=== PATIENT | female | born 1985 | race African-American/Black ===

== ENCOUNTER 2018-09-23 09:48 | Emergency (ER) | payer OTHER ==
[2018-09-23 09:54] VITALS: TEMP 98.8; BMI 26.2
--- NOTE | 2018-09-23 10:16 | PDOC ---
History of Present Illness - General Chief Complaint: Nausea/Vomiting Stated Complaint: SICK Time Seen by Provider: 09/23/18 09:52 History Source: Patient Exam Limitations: No Limitations - History of Present Illness Initial Comments: 32 yo F w a pmh of asthma, Gastritis, PUD, lactose intolerance presents to the ER with severe abdominal pain, nausea, vomiting, diarrhea. She has been experiencing abdominal pain and diarrhea for the past two months. She reports that she had a fever 3 days prior but no longer has one today. She came into the ER because her abdominal pain acutely worsened to the point where she is extremely tender in the epigastric region. She has vomitted 6 times in the past 24 hours - NBNB - and had 2 episodes of watery diarrhea. She denies having any chest pain, SOB, difficulty breathing, dysuria, frequency , urgency, headache, recent travel, blurry vision, numbness, or tingling, fevers , chills, or recent infections. PCP: None Social Hx: Smokes half a PPD. Denies drinking or other substance usage Allergies: Penicillin, iodine, contrast dye Past History - Past Medical History Allergies/Adverse Reactions: Allergies Allergy/AdvReac Type Severity Reaction Status Date / Time Iodinated Contrast- Oral and Allergy Mild Hives Verified 05/10/18 15:00 IV Dye iodine Allergy Mild Hives Verified 05/10/18 15:00 Penicillins Allergy Mild Verified 05/10/18 15:00 Home Medications: Ambulatory Orders Albuterol Sulfate Inhaler - [Ventolin Hfa Inhaler -] 1 - 2 inh PO QID PRN Calcium Carbonate [Tums] 200 mg PO PRN #30 tab.chew 09/23/18 Famotidine [Pepcid] 20 mg PO DAILY 09/23/18 Mag Hydrox/Al Hydrox/Simeth [Mylanta Suspension -] 30 ml PO Q6H #1 bottle Ranitidine HCl [Zantac] 150 mg PO DAILY #30 tablet 09/23/18 Asthma: Yes COPD: No GI Disorders: Yes (Gastritis) - Suicide/Smoking/Psychosocial Hx Smoking History: Unknown if ever smoked Have you smoked in the past 12 months: Yes Number of Cigarettes Smoked Daily: 20 Hx Alcohol Use: No Drug/Substance Use Hx: No Substance Use Type: Alcohol Review of Systems - Review of Systems Constitutional: Yes: Chills, Loss of Appetite. No: Diaphoresis, Fever, Malaise HEENTM: No: Blurred Vision, Double Vision Respiratory: No: Cough, Orthopnea, Shortness of Breath, Stridor, Wheezing Cardiac (ROS): No: Chest Pain, Edema, Irregular Heart Rate, Lightheadedness, Palpitations, Syncope, Chest Tightness ABD/GI: Yes: Abdominal Distended, Diarrhea, Nausea, Poor Appetite, Poor Fluid Intake, Vomiting, Indigestion, Abdominal cramping. No: Blood Streaked Bowels, Constipated, Difficulty Swallowing, Rectal Bleeding : No: Burning, Dysuria, Discharge, Frequency Musculoskeletal: Yes: Back Pain. No: Joint Pain, Neck Pain Integumentary: No: Bruising, Change in Color Neurological: No: Headache, Numbness, Paresthesia, Seizure, Tingling, Tremors Psychiatric: No: Anxiety, Depression Endocrine: No: Excessive Sweating, Flushing Hematologic/Lymphatic: No: Anemia, Blood Clots, Easy Bleeding *Physical Exam - Vital Signs Last Vital Signs Temp Pulse Resp BP Pulse Ox 98.8 F 73 18 116/82 99 09/23/18 09:52 09/23/18 09:52 09/23/18 09:52 09/23/18 09:52 09/23/18 09:52 - Physical Exam General Appearance: Yes: Nourished, Appropriately Dressed, Moderate Distress HEENT: positive: EOMI, CARLIN, Normal ENT Inspection, Normal Voice Neck: positive: Supple. negative: Rigid Respiratory/Chest: positive: Lungs Clear, Normal Breath Sounds. negative: Respiratory Distress, Crackles Cardiovascular: positive: Regular Rhythm, Regular Rate, S1, S2. negative: Edema , JVD Vascular Pulses: Dorsalis-Pedis (R): 2+, Doralis-Pedis (L): 2+ Gastrointestinal/Abdominal: positive: Tender (worse in epigastric), Soft, Increased Bowel Sounds, Distended, Tenderness (epigastric). negative: Decreased BS, Guarding, Rebound Rectal Exam: positive: deferred Lymphatic: negative: Adenopathy Musculoskeletal: positive: Normal Inspection. 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 NML intact, Fully Oriented, Alert, Normal Mood/ Affect, Normal Response, Motor Strength 5/5 Moderate Sedation - Procedure Monitoring Vital Signs: Procedure Monitoring Vital Signs Temperature 98.8 F 09/23/18 09:52 Pulse Rate 73 09/23/18 09:52 Respiratory Rate 18 09/23/18 09:52 Blood Pressure 116/82 09/23/18 09:52 O2 Sat by Pulse Oximetry (%) 99 09/23/18 09:52 Procedures - Bedside Ultrasound Bedside Ultrasound: Gallbladder (No wall edema, no stones, no pericholecystic fluid, CBD not inflamed.) ED Treatment Course - LABORATORY CBC & Chemistry Diagram: 09/23/18 10:40 09/23/18 10:40 Medical Decision Making - Medical Decision Making 32 yo F w a pmh of asthma, Gastritis, PUD, lactose intolerance presents to the ER with severe abdominal pain, nausea, vomiting, diarrhea. DDx IBNLT: PUD, gastritis, GERD, perforated ulcer, Gastroenteritis, food poisoning, lactose intolerance, celiac disease, Crohn vs UC, IBD, other food allergy, parasitic infection, cholecystitis vs gallstones. Plan: Labs, Urine, CXR, hcg, GI cocktail, POCUS, re-assess. POCUS showed no evidence of gallstone, no wall edema, no pericholecystic fluid, no distended CBD. Labs unremarkable Patient feels better and is walking around the department after GI cocktail. Abdominal X-ray shows signs concerning for a possible SBO vs ileus. I placed a 20 gauge IV in the right AC and nesha type and screen, pt/ptt - Will get patient a CTAP with IV and PO contrast. - CTAP showed no acute pathology. Patient feels significantly better and is eating crackers and drinking fluids without difficulty. Will DC patient with a new PCP, Gi doc and psychiatrist. *DC/Admit/Observation/Transfer Diagnosis at time of Disposition: Vomiting, Diarrhea, Gastritis - Discharge Dispostion Disposition: HOME Condition at time of disposition: Stable Decision to Admit order: No - Referrals Referrals: [facility] [place] [Provider Group] Josef Mulligan MD [Staff Physician] - Agus Sanon NP [Nurse Practitioner] - - Patient Instructions Printed Discharge Instructions: DI for Diarrhea and Traveler's Diarrhea -- Adult, DI for Nausea -- Adult, DI for Vomiting -- Adult Additional Instructions: You came into the ER with abdominal pain, nausea, and vomiting. We looked at your blood and found no problems. We also did some x-rays and found no problems. It is very important for you to get a new stomach doctor and a new primary care doctor. We are attaching numbers to the discharge papers for you to call up doctors and schedule an appointment with them. Primary doctor - [facility] resident clinic Stomach Doctor - Dr. Mulligan. Psychiatrist - Agus Sanon We have sent medications to your [facility] pharmacy for you to go and pickle processor. Please come back to the ER if your abdominal pain worsens, you have high fevers , or any other new or worsening concerns. Thank you for coming to the [facility] ER. We hope you feel better soon! Print Language: [place] ISLAND[place] - Post Discharge Activity
[2018-09-23] MEDS ORDERED: SODIUM CHLORIDE 1,000 ML IV STA (10:18)
[2018-09-23] MEDS ORDERED: ONDANSETRON 4 MG/2 ML VIAL IVPUSH ONE (10:19)
--- NOTE | 2018-09-23 10:19 | PDOC ---
Attending Attestation - HPI HPI: 09/23/18 11:55 The patient is a 32 year old female, with a significant PMH of gastritis, asthma , PUD, and lactose intolerance who presents to the emergency department with abdominal pain that began last night that progressively worsened today. The patient states abdomen pain is located to the epigastric area and endorses associated symptoms of nausea, 6 episodes of non bilious/non bloody vomiting , and 2 episodes of diarrhea within 24 hours. She states she had cheese and eggs last night which might have exacerbated the pain. The patient denies chest pain , shortness of breath, headache and dizziness. Denies fever, and constipation. Denies dysuria, frequency, urgency and hematuria. Allergies: Iodinated contrast- oral IV dye, iodine, penicillins Past surgical history: None reported Social history: None reported PCP: None reported Documentation prepared by Kelley Lucia, acting as nuclear medical tech for Karen Gillis DO. - Physicial Exam PE: 09/23/18 11:56 GENERAL: Awake, alert, and fully oriented, in no acute distress HEAD: No signs of trauma EYES: PERRLA, EOMI, sclera anicteric, conjunctiva clear ENT: Auricles normal inspection, hearing grossly normal, nares patent, oropharynx clear without exudates. Moist mucosa NECK: Normal ROM, supple, no lymphadenopathy, JVD, or masses LUNGS: Breath sounds equal, clear to auscultation bilaterally. No wheezes, and no crackles HEART: Regular rate and rhythm, normal S1 and S2, no murmurs, rubs or gallops ABDOMEN: +Epigastric tenderness on palpation without no guarding or rebound. No masses EXTREMITIES: Normal range of motion, no edema. No clubbing or cyanosis. No cords, erythema, or tenderness NEUROLOGICAL: Cranial nerves II through XII grossly intact. Normal speech, normal gait SKIN: Warm, Dry, normal turgor, no rashes or lesions noted. Documentation prepared by Kelley Lucia, acting as nuclear medical tech for Karen Gillis DO. <Kelley Lucia - Last Filed: 09/23/18 11:55> - Resident Resident Name: Fernando Grubbs - ED Attending Attestation I have performed the following: I have examined & evaluated the patient, The case was reviewed & discussed with the resident, I agree w/resident's findings & plan, Exceptions are as noted - Medical Decision Making 09/23/18 10:18 I, Dr. Karen Gillis, DO, attest that this document has been prepared under my direction and personally reviewed by me in its entirety. I further attest, that it accurately reflects all work, treatment, procedures and medical decision -making performed by me. 09/23/18 10:45 a/p: 32yo female with epigastric pain, n/v/d -pt has had diarrhea x 2 months -pt with epigastric pain and n/v after eating cheese yesterday and then making rice, egg, meat stirfry last night -pt with hx of gastric ulcer dx at [facility]- saw a migratory game bird biologist who dx with gastric ulcer -moved to [place] recently- does not have doctors here -suspect gastritis flare up, also hx of lactose intolerance and ate cheese yesterday -pt is nontoxic in appearance -bedside ultrasound negative for biliary pathology- no stones, no gb wall thickening, no pericholecystic fluid -will send labs, hydrate, gi meds -will give a gi cocktail -post likely dc to home with GI and PMD follow up 09/23/18 12:01 pt feeling better pts iv removed pt wanted to talk with a friend outside 09/23/18 12:26 pt with early SBO vs ileus on xray will obtain ct imaging, will discuss with surgery 09/23/18 12:27 09/23/18 14:48 ct does not show an obstruction or ileus mild ff in the pelvis no acute appy on ct pt asking to eat and drink stable for dc to home will give gi follow up and follow up with the medicine clinic <Karen Gillis - Last Filed: 09/23/18 14:50>
[2018-09-23] MEDS ORDERED: FAMOTIDINE 20 MG/50 ML IVPB 20 MG/50 ML MG IVPB ONE (10:24)
[2018-09-23] MEDS ORDERED: MAG HYDROX/AL HYDROX/SIMETH -MYLANTA- ORAL SUSPENSION PO ONE (10:51)
[2018-09-23 10:52] LABS: BASO % 0.6 % (0-2.0); EOS % 2.1 % (0-4.5); HEMATOCRIT 33.4 % (32.4-45.2); HEMOGLOBIN 11.5 GM/dL (10.7-15.3); LYMPH % 16.5 % (8-40); MCH 30.7 pg (25.7-33.7); MCHC 34.5 g/dl (32.0-36.0); MEAN CELL VOLUME 88.9 fl (80-96); MEAN PLT VOLUME 7.8 fl (7.5-11.1); MONO % 7.6 % (3.8-10.2); NEUT % 73.2 % (42.8-82.8); PLATELET COUNT 227 K/MM3 (134-434); RBC 3.76 M/mm3 (3.60-5.2); RDW 16.4 % (11.6-15.6); WHITE BLOOD COUNT 6.3 K/mm3 (4.0-10.0)
[2018-09-23] MEDS ORDERED: LIDOCAINE VISCOUS 2% ORAL/TOP 20 ML UNIT-DOSE CUP MM ONE (10:52)
[2018-09-23] MEDS ORDERED: LIDOCAINE VISCOUS 2% ORAL/TOP 20 ML UNIT-DOSE CUP ONE (11:21)
[2018-09-23 11:25] LABS: ALBUMIN 3.9 g/dl (3.4-5.0); ALK PHOS 70 U/L (45-117); ANION GAP 8 MMOL/L (8-16); BILIRUBIN,TOTAL 0.1 mg/dL (0.2-1); BLOOD UREA NITROGEN 14 mg/dL (7-18); CALCIUM 8.7 mg/dL (8.5-10.1); CHLORIDE 104 mmol/L (98-107); CO2 26 mmol/L (21-32); CREATININE 0.7 mg/dL (0.55-1.3); GLUCOSE,RANDOM 78 mg/dL (74-106); LIPASE 199 U/L (73-393); SGOT/AST 24 U/L (15-37); SGPT/ALT 28 U/L (13-61); SODIUM 138 mmol/L (136-145); TOT PROT 7.4 g/dl (6.4-8.2)
[2018-09-23] MEDS ORDERED: SODIUM CHLORIDE 0.9% 1000 ML INFUS.BAG IV ONE (12:25)
[2018-09-23 13:15] LABS: INR 0.94 (0.83-1.09); PROTHROMBIN TIME (PATIENT) 11.1 SEC (9.7-13.0)
[2018-09-23 13:17] LABS: ACTIVATED PTT 29.1 SECONDS (25.2-36.5)
[2018-09-23 15:17] VITALS: BP 131/90; PULSE 84
== END 2018-09-23 15:17 | disposition home or self-care (01) ==
LOC: JER 09:48
PROC: 3E0337Z Introduction of Electrolytic and Water Balance Substance into Peripheral Vein, Percutaneous Approach (ICD-10-PCS; principal; 2018-09-23)
PROC: 3E033GC Introduction of Other Therapeutic Substance into Peripheral Vein, Percutaneous Approach (ICD-10-PCS; 2018-09-23)
PROC: 3E033GC Introduction of Other Therapeutic Substance into Peripheral Vein, Percutaneous Approach (ICD-10-PCS; 2018-09-23)
PROC: BF43ZZZ Ultrasonography of Gallbladder and Bile Ducts (ICD-10-PCS; 2018-09-23)
DX: K29.70 Gastritis, unspecified, without bleeding (principal); E73.9 Lactose intolerance, unspecified; J45.909 Unspecified asthma, uncomplicated; Z87.19 Personal history of other diseases of the digestive system
CPT/HCPCS: 36415; 71045-TC-FY; 74018-TC-FY; 74176-TC; 80053; 83690; 84703; 85025; 85610; 85730; 86850; 86900; 86901; 96361; 96365; 96375; 99282-25; J7030

== ENCOUNTER 2018-10-21 05:52 | Emergency (ER) | payer OTHER ==
[2018-10-21 06:11] VITALS: BP 128/74; PULSE 80; TEMP 97.6; BMI 23.9
[2018-10-21] MEDS ORDERED: ALBUTEROL SO4 2.5/IPRATROPIUM 0.5 INH SOL 3 ML VIAL.NEB. NEB ONE ×2 (06:15→06:54)
[2018-10-21] MEDS ORDERED: methylPREDNISolone NA SUCC 125 MG/2 ML VIAL IVPUSH ONE (06:25)
[2018-10-21 07:05] LABS: BASO % 0.8 % (0-2.0); EOS % 2.2 % (0-4.5); HEMATOCRIT 31.6 % (32.4-45.2); LYMPH % 21.3 % (8-40); MCH 31.7 pg (25.7-33.7); MCHC 34.8 g/dl (32.0-36.0); MEAN CELL VOLUME 91.1 fl (80-96); MEAN PLT VOLUME 7.5 fl (7.5-11.1); MONO % 7.5 % (3.8-10.2); NEUT % 68.2 % (42.8-82.8); PLATELET COUNT 242 K/MM3 (134-434); RBC 3.47 M/mm3 (3.60-5.2); RDW 17.8 % (11.6-15.6); WHITE BLOOD COUNT 7.2 K/mm3 (4.0-10.0)
--- NOTE | 2018-10-21 07:15 | PDOC ---
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 She also admits to one fever yesterday that she measured to 103 degrees and back pain, chest pain, proximal arm and leg pains. Denies any sputum production, nausea, vomiting, or diarrhea. 10/21/18 08:45 Past History - Past Medical History Allergies/Adverse Reactions: Allergies Allergy/AdvReac Type Severity Reaction Status Date / Time Iodinated Contrast- Oral and Allergy Mild Hives Verified 10/21/18 06:10 IV Dye iodine Allergy Mild Hives Verified 10/21/18 06:10 Penicillins Allergy Mild Verified 10/21/18 06:10 Home Medications: Ambulatory Orders Albuterol Sulfate Inhaler - [Ventolin Hfa Inhaler -] 1 - 2 inh PO QID PRN Calcium Carbonate [Tums] 200 mg PO PRN #30 tab.chew 09/23/18 Calcium Carbonate [Tums] 200 mg PO PRN #30 tab.chew 09/23/18 Famotidine [Pepcid] 20 mg PO DAILY 09/23/18 Mag Hydrox/Al Hydrox/Simeth [Mylanta Suspension -] 30 ml PO Q6H #1 bottle Mag Hydrox/Al Hydrox/Simeth [Mylanta Suspension -] 30 ml PO Q6H #1 bottle Ranitidine HCl [Zantac] 150 mg PO DAILY #30 tablet 09/23/18 Ranitidine HCl [Zantac] 150 mg PO DAILY #30 tablet 09/23/18 Mag Hydrox/Aluminum Hyd/Simeth [Maalox Maximum Strength Susp] 30 ml PO BID PRN # 1 bottle 10/21/18 Ondansetron [Zofran Odt -] 4 mg SL BID PRN #6 od.tablet 10/21/18 Prednisone [Prednisone 50 MG TABLETS] 50 mg PO DAILY #4 tablet 10/21/18 Asthma: Yes COPD: No GI Disorders: Yes (Gastritis) - Suicide/Smoking/Psychosocial Hx Smoking History: Never smoked Have you smoked in the past 12 months: No Number of Cigarettes Smoked Daily: 20 Information on smoking cessation initiated: No Hx Alcohol Use: No Drug/Substance Use Hx: No Substance Use Type: Alcohol Review of Systems - Review of Systems Constitutional: No: Chills, Diaphoresis, Fever, Loss of Appetite HEENTM: No: Eye Pain, Blurred Vision, Tearing Respiratory: Yes: Cough, Shortness of Breath, Wheezing. No: Productive cough Cardiac (ROS): Yes: Chest Pain, Chest Tightness. No: Edema, Irregular Heart Rate, Lightheadedness, Syncope ABD/GI: No: Diarrhea, Nausea, Vomiting : No: Dysuria, Discharge, Frequency Musculoskeletal: Yes: Back Pain, Muscle Pain Integumentary: No: Bruising, Change in Color, Lesions, Lumps, Pallor Neurological: No: Headache, Numbness Psychiatric: Yes: Anxiety, Other (ptsd). No: Depression Hematologic/Lymphatic: No: Anemia, Blood Clots, Easy Bleeding *Physical Exam - Vital Signs Last Vital Signs Temp Pulse Resp BP Pulse Ox 97.6 F 80 22 H 128/74 96 10/21/18 06:10 10/21/18 06:10 10/21/18 06:10 10/21/18 06:10 10/21/18 06:10 - Physical Exam General Appearance: Yes: Nourished, Appropriately Dressed. No: Apparent Distress HEENT: positive: EOMI, CARLIN, Normal ENT Inspection, Normal Voice Neck: positive: Trachea midline, Normal Thyroid, Supple. negative: Tender, Rigid Respiratory/Chest: positive: Lungs Clear, Normal Breath Sounds (Of note, I examined her after she recieved a dose of nebulizer treatment). negative: Chest Tender, Respiratory Distress Cardiovascular: positive: Regular Rhythm, Regular Rate Gastrointestinal/Abdominal: positive: Normal Bowel Sounds, Soft. negative: Tender, Flat Lymphatic: negative: Adenopathy, Tenderness Musculoskeletal: positive: Normal Inspection Extremity: positive: Normal Capillary Refill, Normal Inspection, Normal Range of Motion. negative: Tender Integumentary: positive: Normal Color, Dry, Warm Neurologic: positive: Fully Oriented, Alert, Normal Mood/Affect, Normal Response , Motor Strength 5/5 Moderate Sedation - Procedure Monitoring Vital Signs: Procedure Monitoring Vital Signs Temperature 97.6 F 10/21/18 06:10 Pulse Rate 80 10/21/18 06:10 Respiratory Rate 22 H 10/21/18 06:10 Blood Pressure 128/74 10/21/18 06:10 O2 Sat by Pulse Oximetry (%) 96 10/21/18 06:10 ED Treatment Course - LABORATORY CBC & Chemistry Diagram: 10/21/18 06:44 10/21/18 06:44 Medical Decision Making - Medical Decision Making 33 year old female with URI symptoms and mild muscular pains diffusely. This is likely a viral infection. Patient was given nebulizer treatment prior ot my examination but she was moving air well without adventitious pulmonary findings. CXR was clear, labs WNL, tropnin negative, EKG showing rate 81, NH 162 , QRS 84, QTc 443, normal axis, no ST or T wave changes. Patient improved after nebulizers and PO steroids. She was complaining of a GERD flareup toward the end of her workup so she was given Maalox and famotidine PO. Discharged with prescriptions and PCP follow up. 10/21/18 10:46 *DC/Admit/Observation/Transfer Diagnosis at time of Disposition: SOB (shortness of breath) Asthma Qualifiers: Asthma severity: mild Asthma persistence: intermittent Asthma complication type : with acute exacerbation Qualified Code(s): J45.21 - Mild intermittent asthma with (acute) exacerbation - Discharge Dispostion Disposition: HOME Condition at time of disposition: Improved Decision to Admit order: No - Prescriptions Prescriptions: Mag Hydrox/Aluminum Hyd/Simeth [Maalox Maximum Strength Susp] 30 ml PO BID PRN # 1 bottle PRN Reason: Gas Ondansetron [Zofran Odt -] 4 mg SL BID PRN #6 od.tablet PRN Reason: Nausea Prednisone [Prednisone 50 MG TABLETS] 50 mg PO DAILY #4 tablet - Referrals Referrals: Juan Pablo Louie [Non Staff, Medical] - - Patient Instructions Printed Discharge Instructions: Asthma -- Adult, DI for Epigastric Pain Additional Instructions: As discussed, follow up with Dr. Louie within [address] Louie can refer you to a coverage analyst for your asthma. Try to cut down on smoking as much as possible. Take zofran twice a day as needed for nausea. Return to the nearest emergency department if you have any new, worsening, or concerning symptoms. - Post Discharge Activity
[2018-10-21] MEDS ORDERED: predniSONE 20 MG TABLET (UD) PO ONE (07:29)
[2018-10-21 07:35] LABS: ALBUMIN 3.7 g/dl (3.4-5.0); ALK PHOS 71 U/L (45-117); ANION GAP 7 MMOL/L (8-16); BILIRUBIN,TOTAL 0.3 mg/dL (0.2-1); BLOOD UREA NITROGEN 15 mg/dL (7-18); CALCIUM 8.2 mg/dL (8.5-10.1); CHLORIDE 107 mmol/L (98-107); CO2 25 mmol/L (21-32); CREATININE 0.7 mg/dL (0.55-1.3); GLUCOSE,RANDOM 82 mg/dL (74-106); POTASSIUM 4.3 mmol/L (3.5-5.1); SGOT/AST 27 U/L (15-37); SGPT/ALT 22 U/L (13-61); SODIUM 138 mmol/L (136-145); TOT PROT 6.9 g/dl (6.4-8.2)
--- NOTE | 2018-10-21 07:42 | PDOC ---
Attending Attestation - Resident Resident Name: Leah Rodriguez - ED Attending Attestation I have performed the following: I have examined & evaluated the patient, The case was reviewed & discussed with the resident, I agree w/resident's findings & plan, Exceptions are as noted - HPI HPI: 10/21/18 07:34 33yo F hx asthma (previously intubated, last 6yrs ago, multiple admissions last 1 month ago at [facility], on advair, albuterol PRN), PTSD/anxiety, GERD presents to the ED with 1 days of cough, SOB, diffuse body aches, non productive cough and chest pain when she coughs. +Fever at home to 103 yesterday. Tried albuterol and motrin with mild relief. Also reports her gerd has been "acting up" and she has epigastric pain for 2 days. +sick contacts with URI sxs. - Physicial Exam PE: 10/21/18 08:32 GENERAL: Awake, alert, and fully oriented, in no acute distress HEAD: No signs of trauma EYES: PERRLA, EOMI, sclera anicteric, conjunctiva clear ENT: +nasal congestion, oropharynx with mild posterior OP erythema but without exudates/petechiae. Uvula midline. Moist mucosa NECK: Normal ROM, supple, no lymphadenopathy, JVD, or masses LUNGS: Breath sounds equal, clear to auscultation bilaterally. No wheezes, and no crackles HEART: Regular rate and rhythm, normal S1 and S2, no murmurs, rubs or gallops ABDOMEN: Soft, nontender, normoactive bowel sounds. No guarding, no rebound. No masses EXTREMITIES: Normal range of motion, no edema. No cords, erythema, or tenderness NEUROLOGICAL: Normal speech, cranial nerves intact, equal strength and sensation b/l. Normal gait. SKIN: Superficial abrasion noted to R distal anterior cummins. Otherwise, warm, Dry , normal turgor, no rashes or lesions noted. - Medical Decision Making 10/21/18 08:35 33yo F with hx asthma, GERD, chronic back pain, PTSD/Anxiety presents to the ED with fever, chills, SOB, CP, epigastric abd pain, total body aches. Vitals unremarkable. Exam with mild OP erythema and nasal congestion but lungs are clear, pt appears comfortable and non toxic appearing. Likely viral syndrome. Work up including labs, CXR, flu swab unremarkable. Pt arranging follow up with Dr Berman as outpt for PMD f/u. Pt currently in ambulance bay smoking a cigarette Once back, will reassess, likely DC 10/21/18 09:00 Pt back, well appearing, clear lungs. Repeat RR 16. REquests DC home I discussed the physical exam findings, ancillary test results and final diagnoses with the patient. I answered all of the patient's questions. The patient was satisfied with the care received and felt comfortable with the discharge plan and treatment plan. The patient will call their primary care physician within 24 hours to arrange follow-up and will return to the Emergency Department with any new, persistent or worsening symptoms. Heart Score/ECG Review #1 10/21/18 08:33 Twelve-lead EKG was performed and reviewed by me. Normal sinus rhythm, rate 81. Normal axis and intervals. No ST elevations. T wave inversions in lead V2 to V3 with biphasic T-wave in V4. Also T-wave inversion in lead 3. When compared to EKG from 05/10/2018, no significant changes.
[2018-10-21] MEDS ORDERED: RANITIDINE HCL 150 MG/10 ML UNIT-DOSE PO ONE (07:47)
[2018-10-21] MEDS ORDERED: MAG HYDROX/AL HYDROX/SIMETH 30 ML UNIT-DOSE CUP PO ONE (07:47)
[2018-10-21] MEDS ORDERED: RANITIDINE HCL 150 MG TABLET (FP) ONE (08:10)
[2018-10-21] MEDS ORDERED: predniSONE 20 MG TABLET (UD) ONE (08:10)
[2018-10-21] MEDS ORDERED: MAG HYDROX/AL HYDROX/SIMETH 30 ML UNIT-DOSE CUP ONE (08:11)
[2018-10-21] MEDS ORDERED: predniSONE 10 MG TABLET (UD) ONE (08:19)
[2018-10-21] MEDS ORDERED: RANITIDINE HCL 150 MG TABLET (FP) PO ONE (08:29)
[2018-10-21 10:03] LABS: PLATELET ESTIMATE ADEQUATE
--- NOTE | 2018-10-21 11:01 | EKG ---
Test Reason : Blood Pressure : / mmHG Vent. Rate : 081 BPM Atrial Rate : 081 BPM P-R Int : 162 ms QRS Dur : 084 ms QT Int : 382 ms P-R-T Axes : 043 028 018 degrees QTc Int : 443 ms NORMAL SINUS RHYTHM NONSPECIFIC T WAVE ABNORMALITY ABNORMAL ECG WHEN COMPARED WITH ECG OF 10-MAY-2018 15:23, NO SIGNIFICANT CHANGE WAS FOUND Confirmed by SANDRA ZHOU MD ([id number]) on 10/21/2018 11:00:54 AM Referred By: Confirmed By:SANDRA ZHOU MD
== END 2018-10-21 09:05 | disposition home or self-care (01) ==
LOC: JER 05:52
DX: J45.901 Unspecified asthma with (acute) exacerbation (principal); K21.9 Gastro-esophageal reflux disease without esophagitis; F43.10 Post-traumatic stress disorder, unspecified; M54.89 Other dorsalgia; G89.29 Other chronic pain; Z88.0 Allergy status to penicillin; Z91.041 Radiographic dye allergy status
CPT/HCPCS: 36415; 71045-TC-FY; 80053; 84484; 84703; 85025; 87804; 93005; 93010; 99282-25

== ENCOUNTER 2019-05-23 11:25 | Emergency (ER) | payer OTHER ==
[2019-05-23 11:39] VITALS: BP 132/93; PULSE 96; TEMP 98.2; BMI 25.7
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
[2019-05-23] MEDS ORDERED: ONDANSETRON *ODT* 4 MG TABLET SL ONE (13:36)
[2019-05-23] MEDS ORDERED: ONDANSETRON *ODT* 4 MG TABLET ONE (13:39)
== END 2019-05-23 16:50 | disposition home or self-care (01) ==
LOC: JERFT 11:25
PROC: 0CQ0XZZ Repair Upper Lip, External Approach (ICD-10-PCS; principal; 2019-05-23)
DX: S01.511A Laceration without foreign body of lip, initial encounter (principal); S10.81XA Abrasion of other specified part of neck, initial encounter; S40.812A Abrasion of left upper arm, initial encounter; S40.811A Abrasion of right upper arm, initial encounter; S50.812A Abrasion of left forearm, initial encounter; S50.811A Abrasion of right forearm, initial encounter; Y04.2XXA Assault by strike against or bumped into by another person, initial encounter; Y93.89 Activity, other specified; Y92.038 Other place in apartment as the place of occurrence of the external cause; Y99.8 Other external cause status; Y07.9 Unspecified perpetrator of maltreatment and neglect
CPT/HCPCS: 70360-TC-FY; 70486-TC; 72050-TC-FY; 84703; 99281-25; Q0162

== ENCOUNTER 2019-06-05 21:13 | Emergency (ER) | payer OTHER ==
[2019-06-05 21:35] VITALS: TEMP 98.4; BMI 24.7
--- NOTE | 2019-06-05 22:06 | PDOC ---
History of Present Illness - General Chief Complaint: Pain, Acute Stated Complaint: ABDOMINAL PAIN Time Seen by Provider: 06/05/19 21:47 History Source: Patient Exam Limitations: No Limitations - History of Present Illness Initial Comments: 06/05/19 22:04 Blanca Mary is a 33yF w PMHx GERD, asthma, chronic back pain presenting w abdominal pain. This afternoon, was sleeping and woke up w sudden onset epigastric and suprapubic pain. Also vomited several times. Endorsed alcohol and marijuana use earlier today. Reports taking percocet for back pain. Denies vaginal discharge/bleeding. Denies fever, headache, SOB, chest pain, urinary, bowel mvmt changes. Sexually active. Asking for benadryl for pain Past History - Past Medical History Allergies/Adverse Reactions: Allergies Allergy/AdvReac Type Severity Reaction Status Date / Time Iodinated Contrast Media Allergy Mild Hives Verified 06/05/19 21:33 [Iodinated Contrast- Oral and IV Dye] iodine Allergy Mild Hives Verified 06/05/19 21:33 Penicillins Allergy Mild Verified 06/05/19 21:33 Home Medications: Ambulatory Orders Albuterol Sulfate Inhaler - [Ventolin Hfa Inhaler -] 1 - 2 inh PO QID PRN Calcium Carbonate [Tums] 200 mg PO PRN #30 tab.chew 09/23/18 Famotidine [Pepcid] 20 mg PO DAILY 09/23/18 Mag Hydrox/Al Hydrox/Simeth [Mylanta Suspension -] 30 ml PO Q6H #1 bottle Ranitidine HCl [Zantac] 150 mg PO DAILY #30 tablet 09/23/18 Mag Hydrox/Aluminum Hyd/Simeth [Maalox Maximum Strength Susp] 30 ml PO BID PRN # 1 bottle 10/21/18 Ondansetron [Zofran Odt -] 4 mg SL BID PRN #6 od.tablet 10/21/18 Prednisone [Prednisone 50 MG TABLETS] 50 mg PO DAILY #4 tablet 10/21/18 Cyclobenzaprine HCl [Flexeril -] 10 mg PO HS #10 tablet 05/23/19 Ibuprofen 800 mg PO TID #30 tablet 05/23/19 Ondansetron [Zofran Odt -] 4 mg SL TID #10 od.tablet 08/29/19 Asthma: Yes COPD: No GI Disorders: Yes (Gastritis) - Immunization History Immunization Up to Date: Yes - Suicide/Smoking/Psychosocial Hx Smoking History: Never smoked Have you smoked in the past 12 months: No Number of Cigarettes Smoked Daily: 10 Hx Alcohol Use: No Drug/Substance Use Hx: Yes (MARIJUANA) Substance Use Type: Alcohol Review of Systems - Review of Systems Constitutional: No: Chills, Fever HEENTM: No: Eye Pain, Ear Pain, Nose Pain, Throat Pain, Mouth Pain Respiratory: No: Cough, Shortness of Breath Cardiac (ROS): No: Chest Pain, Palpitations, Syncope ABD/GI: Yes: Nausea, Vomiting. No: Abdominal Distended, Constipated, Diarrhea : No: Burning, Dysuria, Discharge, Flank Pain, Hematuria Musculoskeletal: No: Back Pain, Joint Pain, Muscle Pain Integumentary: No: Bruising, Flushing, Lesions Neurological: No: Headache, Seizure, Tingling, Tremors Psychiatric: No: Anxiety, Depression Endocrine: No: Excessive Sweating, Flushing, Intolerance to Cold, Intolerance to Heat Hematologic/Lymphatic: No: Anemia, Blood Clots, Easy Bleeding *Physical Exam - Vital Signs Last Vital Signs Temp Pulse Resp BP Pulse Ox 98.4 F 60 18 173/93 H 99 06/05/19 21:33 06/05/19 21:33 06/05/19 21:33 06/05/19 21:33 06/05/19 21:33 - Physical Exam General Appearance: Yes: Nourished, Appropriately Dressed, Moderate Distress ( tearful, moving around) HEENT: positive: EOMI, Hearing Grossly Normal. negative: CARLIN (3mm pupils bilaterally, reactive to light) Respiratory/Chest: positive: Lungs Clear, Normal Breath Sounds. negative: Chest Tender, Respiratory Distress, Crackles, Rales, Rhonchi, Stridor Cardiovascular: positive: Regular Rhythm, Regular Rate, S1, S2. negative: Edema , Murmur Gastrointestinal/Abdominal: positive: Normal Bowel Sounds, Tender (intermittent moderate tenderness all quadrants), Flat, Soft. negative: Organomegaly, Guarding, Rebound, Mass Musculoskeletal: negative: CVA Tenderness Extremity: positive: Normal Capillary Refill Integumentary: positive: Normal Color Neurologic: positive: Fully Oriented, Alert, Normal Mood/Affect, Normal Response , Respond to painful stimul, Responsive. negative: Sensory Deficit, Confused, Disoriented ED Treatment Course - LABORATORY CBC & Chemistry Diagram: 06/05/19 22:30 06/05/19 22:30 Medical Decision Making - Medical Decision Making 06/05/19 22:02 CBC CMP lipase HCG UA drug screen alcohol 1L NS, pepcid, maalox, lidocaine, zofran, toradol, bentyl, tylenol WBC 12, 3+ blood UA CBC, CMP, lipase normal, HCG neg, alcohol neg Blanca Mary is a 33yF w PMHx GERD, asthma presenting w abdominal pain. Pain likely d/t vs gastritis. Given 1L NS, pepcid, maalox, lidocaine, zofran, toradol , bentyl, tylenol w some pain relief. Also is opioid intoxicated w constricted pupils bilaterally. Not , neg alcohol. Does not have pancreatitis w normal lipase. Pt requested to go home. D/c home *DC/Admit/Observation/Transfer Diagnosis at time of Disposition: Abdominal pain Qualifiers: Abdominal location: lower abdomen, unspecified Qualified Code(s): R10.30 - Lower abdominal pain, unspecified - Discharge Dispostion Disposition: HOME Condition at time of disposition: Improved Decision to Admit order: No - Referrals Referrals: Barry Arvizu MD [Non Staff, Medical] - - Patient Instructions Printed Discharge Instructions: DI for Abdominal Pain-Adult Additional Instructions: You were seen for abdominal pain. You were given medication for your pain. Your labs did not show anything concerning Come back to the ED if you have worsening pain or continue vomiting. - Post Discharge Activity
[2019-06-05] MEDS ORDERED: SODIUM CHLORIDE 0.9% 1000 ML INFUS.BAG IV ONE (22:11)
[2019-06-05] MEDS ORDERED: ONDANSETRON 4 MG/2 ML VIAL IVPUSH ONE (22:11)
[2019-06-05] MEDS ORDERED: FAMOTIDINE 20 MG/50 ML IVPB 20 MG/50 ML MG IVPB ONE (22:11)
[2019-06-05] MEDS ORDERED: MAG HYDROX/AL HYDROX/SIMETH 30 ML UNIT-DOSE CUP PO ONE (22:11)
[2019-06-05] MEDS ORDERED: LIDOCAINE VISCOUS 2% ORAL/TOP 20 ML UNIT-DOSE CUP MM ONE (22:12)
[2019-06-05] MEDS ORDERED: ONDANSETRON 4 MG/2 ML VIAL ONE (22:15)
[2019-06-05 22:45] LABS: BASO % 0.7 % (0-2.0); EOS % 0.7 % (0-4.5); HEMATOCRIT 38.6 % (32.4-45.2); HEMOGLOBIN 12.4 GM/dL (10.7-15.3); LYMPH % 6.3 % (8-40); MEAN CELL VOLUME 90.4 fl (80-96); MONO % 4.7 % (3.8-10.2); NEUT % 87.6 % (42.8-82.8); PLATELET COUNT 315 K/MM3 (134-434); RBC 4.27 M/mm3 (3.60-5.2); RDW 16.3 % (11.6-15.6)
[2019-06-05] MEDS ORDERED: KETOROLAC TROMETHAMINE 30 MG/1 ML VIAL IVPUSH ONE (23:02)
--- NOTE | 2019-06-05 23:07 | PDOC ---
Documentation entered by Anitha Gregory SCRIBE, acting as scribe for Karen Gillis DO. Karen Gillis DO: This documentation has been prepared by the chandrikaibe, Anitha Gregory SCRIBE, under my direction and personally reviewed by me in its entirety. I confirm that the documentation accurately reflects all work, treatment, procedures, and medical decision making performed by me. Attending Attestation - Resident Resident Name: Almas Lemus - ED Attending Attestation I have performed the following: I have examined & evaluated the patient, The case was reviewed & discussed with the resident, I agree w/resident's findings & plan, Exceptions are as noted - HPI HPI: 06/05/19 22:38 The patient is a 33-year-old female, with a past medical history of asthma, GERD , and chronic back pain, who presents to the ED with nausea and epigastric/ suprapubic pain that woke her up from sleep today. Patient had one episode of loose stools prior to arrival. The patient denies any fevers or chills. Denies any chest pain, palpitations, or shortness of breath. Denies any urinary symptoms. - Physicial Exam PE: 06/05/19 22:40 GENERAL: Awake, alert, and fully oriented, in no acute distress HEAD: No signs of trauma EYES: PERRLA, EOMI, sclera anicteric, conjunctiva clear ENT: Auricles normal inspection, hearing grossly normal, nares patent, oropharynx clear without exudates. Moist mucosa NECK: Normal ROM, supple, no lymphadenopathy, JVD, or masses LUNGS: Breath sounds equal, clear to auscultation bilaterally. No wheezes, and no crackles HEART: Regular rate and rhythm, normal S1 and S2, no murmurs, rubs or gallops ABDOMEN: (+)Epigastric and suprapubic tenderness to palpation. Soft, normoactive bowel sounds. No guarding, no rebound. No masses EXTREMITIES: Normal range of motion, no edema. No clubbing or cyanosis. No cords, erythema, or tenderness NEUROLOGICAL: Cranial nerves II through XII grossly intact. Normal speech, normal gait SKIN: Warm, Dry, normal turgor, no rashes or lesions noted - Medical Decision Making 06/05/19 23:05 I, Dr. Karen Kurkowski, DO, attest that this document has been prepared under my direction and personally reviewed by me in its entirety. I further attest, that it accurately reflects all work, treatment, procedures and medical decision -making performed by me. 06/05/19 23:05 a/p: 33yo female with hx of gastritis with acute onset of abd pain today -pt states pain to upper abd and lower abd -states she started her menstrual cycle today -pt states cramping in lower abd and n/v since drinking alcohol today -pt denies blood in vomitus or stool -pt states she drank etoh 1.5 beers and smoked marijuana before the pain started -denies back pain or dysuria -pt states pain in upper abd -concern for gastritis vs menstrual cramps causing pain vs pancreatitis -labs ordered, ivf hydation, gi cocktail, zofran -will monitor and reassess 06/06/19 00:09 labs reviewed no elevated lipase no uti blood in urine from menstrual cycle preg neg 06/06/19 01:35 pt ambulatory in the ED requesting to go home tolerated po no vomiting in the ED stable for dc to home
[2019-06-05] MEDS ORDERED: LIDOCAINE VISCOUS 2% ORAL/TOP 20 ML UNIT-DOSE CUP ONE (23:08)
[2019-06-05] MEDS ORDERED: MAG HYDROX/AL HYDROX/SIMETH 30 ML UNIT-DOSE CUP ONE (23:09)
[2019-06-05] MEDS ORDERED: KETOROLAC TROMETHAMINE 30 MG/1 ML VIAL ONE (23:09)
[2019-06-05 23:12] LABS: ALBUMIN 4.1 g/dl (3.4-5.0); ALK PHOS 78 U/L (45-117); ANION GAP 12 MMOL/L (8-16); BILIRUBIN,TOTAL 0.2 mg/dL (0.2-1); BLOOD UREA NITROGEN 10.4 mg/dL (7-18); CALCIUM 9.3 mg/dL (8.5-10.1); CHLORIDE 108 mmol/L (98-107); CO2 25 mmol/L (21-32); CREATININE 0.9 mg/dL (0.55-1.3); GLUCOSE,RANDOM 100 mg/dL (74-106); POTASSIUM 3.6 mmol/L (3.5-5.1); SGOT/AST 28 U/L (15-37); SGPT/ALT 37 U/L (13-61); SODIUM 145 mmol/L (136-145); TOT PROT 7.8 g/dl (6.4-8.2)
[2019-06-05 23:13] LABS: URINE APPEARANCE CLEAR; URINE BILIRUBIN NEGATIVE (NEGATIVE); URINE COLOR AMBER; URINE GLUCOSE (UA) NEGATIVE (NEGATIVE); URINE KETONE NEGATIVE (NEGATIVE); URINE LEUK ESTERASE NEGATIVE (NEGATIVE); URINE NITRITE NEGATIVE (NEGATIVE); URINE PROTEIN TRACE (NEGATIVE); URINE UROBILINOGEN 0.2 mg/dL (0.2-1.0)
[2019-06-05 23:31] LABS: EPI CELLS FEW /HPF (0-5/HPF); URINE RBC 10-15XC /hpf (0-4); URINE WBC 3-5XC /hpf (0-5)
[2019-06-05 23:32] LABS: URINE BACTERIA FEW /hpf (NEGATIVE)
[2019-06-06] MEDS ORDERED: ACETAMINOPHEN 325 MG TABLET (FP) PO ONE (00:33)
[2019-06-06] MEDS ORDERED: DICYCLOMINE HCL 20 MG/2 ML AMPUL IM ONE (00:34)
[2019-06-06] MEDS ORDERED: DICYCLOMINE HCL 10 MG CAPSULE ONE (00:49)
[2019-06-06] MEDS ORDERED: ACETAMINOPHEN 325 MG TABLET (FP) ONE (00:49)
[2019-06-06] MEDS ORDERED: DICYCLOMINE HCL 20 MG TABLET PO ONE (00:50)
[2019-06-06 01:33] VITALS: BP 161/74; PULSE 78
== END 2019-06-06 01:33 | disposition home or self-care (01) ==
LOC: JER 21:13
PROC: 3E033GC Introduction of Other Therapeutic Substance into Peripheral Vein, Percutaneous Approach (ICD-10-PCS; principal; 2019-06-05)
PROC: 3E0333Z Introduction of Anti-inflammatory into Peripheral Vein, Percutaneous Approach (ICD-10-PCS; 2019-06-05)
PROC: 3E0337Z Introduction of Electrolytic and Water Balance Substance into Peripheral Vein, Percutaneous Approach (ICD-10-PCS; 2019-06-05)
DX: R10.30 Lower abdominal pain, unspecified (principal); J45.909 Unspecified asthma, uncomplicated; K21.9 Gastro-esophageal reflux disease without esophagitis
CPT/HCPCS: 36415; 80053; 80307; 81003; 83690; 84703; 85025; 99283-25; J7030

== ENCOUNTER 2021-05-22 14:51 | Emergency (ER) | payer OTHER ==
[2021-05-22 15:06] VITALS: BP 125/78; PULSE 84; TEMP 99.3; BMI 23.0
[2021-05-22] MEDS ORDERED: diphenhydrAMINE HCL 25 MG CAPSULE (FP) PO ONE ×2 (16:05→17:08)
== END 2021-05-22 17:00 | disposition home or self-care (01) ==
LOC: JER 14:51
DX: R21 Rash and other nonspecific skin eruption (principal)
CPT/HCPCS: 99283-25